=== PATIENT | male | born 1985 | race Caucasian/White ===

== ENCOUNTER 2021-01-19 13:08 | Emergency (ER) | payer OTHER, SELFPAY ==
--- NOTE | ~2021-01-19 | US_ITS ---
EXAMINATION: US VENOUS ULTRASOUND WITH DOPPLER LOWER EXTREMITY, LEFT CLINICAL INFORMATION: Swelling and pain. Rule out DVT. COMPARISON: None TECHNIQUE: Ultrasound of the deep veins is performed from the hip to the calf with compression sonography and color and pulse Doppler assessment. Spectral analysis with color-flow imaging is performed. FINDINGS: There is normal venous compression and respiratory variation and augmented flow. The visualized common femoral vein, superficial femoral vein, profunda femoral vein, popliteal vein, and the trifurcation region shows no evidence of deep venous thrombosis. There is no significant popliteal fossa cyst. Incidental finding of several small lymph nodes in the left groin. Also visualized are multiple small varicosities of the greater saphenous vein. Also visualized is a dorsal foot upper cystic/solid lesion with no flow, measuring 1.8 x 1.1 x 1.8 cm. If the patient's symptoms persist, followup ultrasound in 5 days 7 days might be of value to exclude proximal propagation from a non-visualized calf vein. US/US venous duplex LE LT IMPRESSION: No DVT demonstrated in the left lower extremity. There are multiple small varicose veins arising of the left greater saphenous. Cystic/solid lesion 1.8 cm along the left dorsal proximal foot. Question neuroma, lipoma or a complex sebaceous cyst. If patient has clinical pain further evaluation with MRI can be performed.
[2021-01-19 13:20] VITALS: BP 137/81; PULSE 66; RESP 16; TEMP 36.7; O2SAT 97; BMI 28.1
--- NOTE | 2021-01-19 13:56 | ED.GENADULT ---
HPI - General Adult General Chief complaint: General Medical Stated complaint: leg pain DVT? Time Seen by Provider: 01/19/21 13:37 Source: patient Mode of arrival: ambulatory Limitations: no limitations History of Present Illness HPI narrative: 35-year-old male with a past medical history of varicose veins here with left leg swelling and pain. Patient tells me he noticed an area of swelling in the left lower leg which seems to be getting worse. He has been seen by a vascular surgeon and is planning to follow up for removal of the varicose veins. No history of DVT. No shortness of breath or chest pain. No fevers chills Related Data Allergies Allergy/AdvReac Type Severity Reaction Status Date / Time No Known Allergies Allergy Verified 01/19/21 13:37 Review of Systems Review of Systems: Yes all other systems are reviewed and are negative Constitutional: Constitutional: Reports no additional constitutional complaints, Denies body ache(s), Denies chills, Denies fever(s), Denies headache(s) and Denies weakness Eyes: Eyes: Reports no additional eye complaints and Denies change in vision ENT: Reports system reviewed and no additional complaints, except as documented, Denies dizziness, Denies headache(s), Denies nasal congestion, Denies nasal discharge and Denies neck pain Cardiovascular: Cardiovascular: Reports no additional cardiovascular complaints, Denies chest pain, Reports leg edema and Denies dyspnea Respiratory: Respiratory: Reports no additional respiratory complaints, Denies cough and Denies dyspnea Gastrointestinal: Gastrointestinal: Reports no additional gastrointestinal complaints, Denies abdominal pain, Denies diarrhea, Denies nausea and Denies vomiting Genitourinary: Genitourinary: Denies urinary incontinence Musculoskeletal: Musculoskeletal: Reports no additional musculoskeletal complaints, Denies back pain, Denies arthralgias, Denies joint swelling, Denies neck pain, Denies numbness and Denies tingling Integumentary/Breasts: Skin/Breast: Reports system reviewed and no additional complaints, except as docu and Denies rash Neurologic: Reports system reviewed and no additional complaints, except as documented, Denies Abnormal speech present, Denies dizziness, Denies headache(s), Denies numbness, Denies tingling and Denies weakness PMF Past Medical History Attestation statement: The following information was validated with the patient. Source: old records reviewed and nursing notes reviewed Medical History Varicose vein of leg Social History Social History Advance Directives: No Advance Directives Information Provided: No Physical Exam Vital Signs: Vital Signs: Last Vital Signs Temp 98.1 F 01/19/21 13:20 Pulse 66 01/19/21 13:20 Resp 16 01/19/21 13:20 BP 137/81 01/19/21 13:20 Pulse Ox 97 01/19/21 13:20 Body Mass Index 28.1 Const: General: cooperative, healthy appearing, comfortable and no acute distress Orientation/consciousness: patient oriented x3 Limitations: no limitations HENMT: Head: Yes normal to inspection Ears: hearing grossly normal bilaterally General nose exam: Normal external nose present Face and sinus: Yes normal facial exam Mouth: Normal oral and palatal mucosa present Throat: Yes posterior oropharynx normal Eyes: General: appearance normal, both eyes and all related structures Pupils: Equal, round and reactive pupils present Neck: Neck: Yes normal visual inspection Chest: Chest palpation & inspection: normal inspection of the chest Resp: Effort & Inspection: normal respiratory effort Auscultation: clear to auscultation bilaterally Cardio: Rate: regular rate Rhythm: regular rhythm Peripheral pulses: Peripheral pulses 2+ throughout GI: Inspection: Yes normal to inspection Palpation (GI): Soft to palpation and nontender Auscultation: normal bowel sounds Back/Spine/Pelvis: Thoracic/Lumbar Spine: thoracic and lumbar spine normal to inspection Skin: General skin exam: no rashes or lesions noted Neuro: General: patient oriented x3, no focal motor deficits and normal sensation to monofilament Cranial nerves: Yes Equal, round and reactive pupils present Cognition (Neuro): normal cognition Speech: No Abnormal speech present Gait exam (Neuro): Normal gait present Motor exam (neuro): 5/5 motor strength present throughout Extrem: Other: Bilateral lower extremities have varicose veins. The patient does have some tenderness to the left calf and over the left distal anterior lower leg he has a area of swelling that is firm with no redness or induration General: Yes normal to inspection Course Course Course Narrative: Left leg calf pain and swelling w/ ?mass noted. Will check US [id number]-US shows No DVT demonstrated in the left lower extremity. ? There are multiple small varicose veins arising of the left greater saphenous. ? Cystic/solid lesion 1.8 cm along the left dorsal proximal foot. Question neuroma, lipoma or a complex sebaceous cyst. If patient has clinical pain further evaluation with MRI can be performed. Report given to patient. Reviewed worrisome signs/symptoms with patient and when to return to Ed. Comfortable with discharge home. Medical Decision Making Imaging Data Venous US: Attestation: I personally reviewed and interpreted this imaging study as follows: Radiologist's impression: No DVT demonstrated in the left lower extremity. ? There are multiple small varicose veins arising of the left greater saphenous. ? Cystic/solid lesion 1.8 cm along the left dorsal proximal foot. Question neuroma, lipoma or a complex sebaceous cyst. If patient has clinical pain further evaluation with MRI can be performed. Discharge Plan Discharge Clinical Impression: Lipoma Qualifiers: Lipoma location: lower extremity Laterality: left Qualified Code(s): D17.24 - Benign lipomatous neoplasm of skin and subcutaneous tissue of left leg Patient Disposition: Home, Self-Care Instructions: Lipoma (ED) Additional Instructions: Your ultrasound shows no deep vein thrombosis Referrals: Physician,None [Primary Care Provider] - 2 days
== END 2021-01-19 16:31 | disposition home or self-care (01) ==
PROVIDERS: Emergency Provider Emergency Medicine
DX: D17.24 Benign lipomatous neoplasm of skin and subcutaneous tissue of left leg (principal); M79.662 Pain in left lower leg; R60.0 Localized edema
CPT/HCPCS: 93971; 99283